=== PATIENT | female | born 1995 | race Caucasian/White ===

== ENCOUNTER 2019-04-20 02:14 | Emergency (ER) | payer OTHER ==
[2019-04-20] MEDS ORDERED: Lidocaine 1% PF 5 ML VIAL ONE (02:37)
[2019-04-20] MEDS ORDERED: Adacel (T-DAP) 0.5 ML SYRINGE ONE (02:37)
== END 2019-04-20 03:56 | disposition home or self-care (01) ==
LOC: SCSER 02:14
DX: S01.352A Open bite of left ear, initial encounter (principal); S01.312A Laceration without foreign body of left ear, initial encounter; W54.0XXA Bitten by dog, initial encounter
CPT/HCPCS: 12013; 90471; 90715; J2001

== ENCOUNTER 2023-10-27 10:34 | Outpatient (CLI) | payer OTHER | END 2023-10-27 10:35 | disposition home or self-care (01) | LOC: SCSRAD 10:34 | PROVIDERS: ATTEND Physician Assistant | DX: J18.9 Pneumonia, unspecified organism (principal) | CPT/HCPCS: 71046 ==